=== PATIENT | female | born 1945 ===

== ENCOUNTER 2020-10-10 05:20 | Inpatient (IN) | payer OTHER ==
[~2020-10-10] VITALS: Ht 149.9 cm; Wt 64.9 kg
[~2020-10-10 05:20] MED LIST: CARDIZEM CD120 MG PO; CHILDREN'S ASPI81 MG PO; PRAVASTATIN SOD20 MG PO; SINGULAIR10 MG PO
[2020-10-10] MEDS ORDERED: ALLERGY RELIEF180 MG (10:27)
[2020-10-10] MEDS ORDERED: FLONASE16 GM (10:27)
== END 2020-10-12 18:49 | DRG 470 ==
LOC: CIR.AMB 05:20 → O/R 10:12 → SURH 10:12
PROVIDERS: ADMIT Orthopaedic Surgery; ATTEND Orthopaedic Surgery
PROC: 0SRD0J9 Replacement of Left Knee Joint with Synthetic Substitute, Cemented, Open Approach (ICD-10-PCS; principal; 2020-10-10 10:00)
DX: M17.12 Unilateral primary osteoarthritis, left knee (principal); D62 Acute posthemorrhagic anemia; I10 Essential (primary) hypertension; Z20.822 Contact with and (suspected) exposure to COVID-19